=== PATIENT | male | born 1980 | race Caucasian/White ===

== ENCOUNTER 2020-07-13 19:07 | Emergency (ER) | payer SELFPAY ==
[~2020-07-13] VITALS: Ht 177.8 cm; Wt 103.1 kg
[2020-07-13 19:16] VITALS: BP 142/86
[2020-07-13] MEDS ORDERED: TETRACAINE HCL/PF 0.5% OPTH 4 ML BTL OP ONE (19:25)
[2020-07-13] MEDS ORDERED: FLUORESCEIN OPTH STRIP 1 MG OP ONE (19:25)
--- NOTE | 2020-07-13 19:55 | NUR ---
PT PLACED IN CHAIR A
--- NOTE | 2020-07-13 20:07 | NUR ---
MD EXAMING PT AT THIS TIME
--- NOTE | 2020-07-13 20:07 | NUR ---
SLIT LAMP AND MEDS AT CHAIR SIDE FOR
--- NOTE | 2020-07-13 20:13 | NUR ---
PT WAS AT WORK GRINDING METAL AND FELT A PIECE OF METAL SHAVING GO INTO HIS LEFT EYE. PT STATES HE FLUSHED HIS EYE WITH WATER. IS STILL HAVING BURNING PAIN. REDNESS NOTED TO SCERLA. NO VISION ISSUES. PT PLACED IN CHAIR
[2020-07-13 20:24] VITALS: BP 142/86
--- NOTE | 2020-07-13 20:24 | NUR ---
Patient discharged with v/s stable. Written and verbal after care instructions given and explained. Patient alert, oriented and verbalized understanding of instructions. Ambulatory with steady gait. All questions addressed prior to discharge. ID band removed. Patient advised to follow up with PMD. Rx of LEVOFLAXACIN given. Patient educated on indication of medication including possible reaction and side effects. Opportunity to ask questions provided and answered.
== END 2020-07-13 20:24 | disposition home or self-care (01) ==
LOC: MED 19:07
DX: T15.02XA Foreign body in cornea, left eye, initial encounter (principal); X58.XXXA Exposure to other specified factors, initial encounter; Y93.89 Activity, other specified; Y92.89 Other specified places as the place of occurrence of the external cause; Y99.8 Other external cause status
CPT/HCPCS: 65220; 99284